=== PATIENT | female | born 1995 | race Two or more races ===

== ENCOUNTER 2023-08-19 13:34 | Outpatient (CLI) | payer OTHER ==
[~2023-08-19 13:34] MED LIST: KEFLEX250 MG
== END 2023-08-19 13:36 | disposition home or self-care (01) ==
LOC: PRENATAL 13:34
PROVIDERS: ATTEND Obstetrics & Gynecology Maternal & Fetal Medicine
DX: O36.80X0 Pregnancy with inconclusive fetal viability, not applicable or unspecified (principal); Z36.82 Encounter for antenatal screening for nuchal translucency; Z36.9 Encounter for antenatal screening, unspecified; Z3A.11 11 weeks gestation of pregnancy

== ENCOUNTER 2023-10-20 10:14 | Outpatient (CLI) | payer OTHER | END 2023-10-20 10:15 | disposition home or self-care (01) | LOC: PRENATAL 10:14 | PROVIDERS: ATTEND Obstetrics & Gynecology Maternal & Fetal Medicine | DX: O35.3XX0 Maternal care for (suspected) damage to fetus from viral disease in mother, not applicable or unspecified (principal); O44.00 Complete placenta previa NOS or without hemorrhage, unspecified trimester; Z3A.19 19 weeks gestation of pregnancy ==